=== PATIENT | female | born 1960 | race Caucasian/White ===

== ENCOUNTER 2019-06-24 11:55 | Inpatient (IN) | payer OTHER ==
[~2019-06-24] VITALS: Ht 172.7 cm; Wt 80.4 kg
[2019-06-24] MEDS ORDERED: SODIUM CHLORIDE FLUSH 10ML SYR IVF ONE (12:00)
[2019-06-24] MEDS ORDERED: LORazepam 2 MG/ML, 1ML ONE (12:22)
[2019-06-24] MEDS ORDERED: PLEASE ENTER HEIGHT AND WEIGHT MC SCH (12:30)
[2019-06-24] MEDS ORDERED: LORazepam 2 MG/ML, 1ML IVPush ONE (12:30)
--- NOTE | 2019-06-24 12:32 | NUR ---
LUNCH BREAK NOTE: PT TO MRI. BP 131/65. PT MEDICATED WITH ATIVAN PRIOR TO LEAVING.
[2019-06-24] MEDS ORDERED: GADOTERATE 7.5 MMOL/15 ML SYR ONE (12:57)
--- NOTE | 2019-06-24 13:23 | NUR ---
PT BACK FROM MRI, SEIZURE PADS PLACED ON BED. 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 PT BP - 135/72, HAS BEEN OFF DRIP FOR MRI. ERP AWARE, TO LEAVE DRIP OFF FOR NOW. LAB IN AT THIS TIME TO DRAW BLOOD. FAMILY AT BEDSIDE. PT PANTS REMOVED.
[2019-06-24 13:45] LABS: INTERNATIONAL NORMALIZED RATIO 1.08 (0.93-1.1); PROTHROMBIN TIME 11.5 Seconds (9.6-11.5)
--- NOTE | 2019-06-24 13:57 | NUR ---
TASK RN: PT ASSISTED TO BED MOREJON. PT AWAKE/ALERT, A&OX4. DENIES PAIN. DECREASED FINE MOTOR CONTROL AND SENSATION OF RUE. PT HAVING TROUBLE WITH WORD FINDING, SPEECH SLOW AND MILDLY SLURRED BY UNDERSTANDABLE. +STRENGTH OF BILAT LOWER EXTREMITIES. BP/SPO2/ECG MONITORING IN PLACE. NSR ON MONITOR. BP WITHIN SET PARAMETERS. Addendum: 06/24/19 at 1403 by MYAH HOB @ 45
--- NOTE | 2019-06-24 14:48 | NUR ---
PT RESTING IN BED, HOSPITALIST WAS IN TO SEE PT. PT REMAINS HAVING TROUBLE FINDING WORDS. FAMILY AT BEDSIDE. PT VSS, SEE CHARTED. PT GIVEN NON SKID SOCKS. PT NPO AT THIS TIME. WILL CONTINUE TO MONITOR.
[2019-06-24] MEDS ORDERED: DEXAMETHASONE 4 MG/ML, 1ML ONE (14:55)
[2019-06-24] MEDS: SODIUM CHLORIDE 0.9% 1,000 ML IV SCH (14:56)
[2019-06-24] MEDS: DEXAMETHASONE 4 MG/ML, 1ML IVPush SCH ×2 (14:57→20:50)
--- NOTE | 2019-06-24 15:44 | NUR ---
REPORT TO RONALD MEJIA FOR ROOM 404. PT RESTING CALMLY IN BED WITH FAMILY AT BEDSIDE.
[2019-06-24 16:12] VITALS: BP 133/73
[2019-06-24 19:47] VITALS: BP 109/69
[2019-06-25 00:15] VITALS: BP 102/63
[2019-06-25] MEDS: DEXAMETHASONE 4 MG/ML, 1ML IVPush SCH ×4 (02:44→20:36)
[2019-06-25] MEDS: SODIUM CHLORIDE 0.9% 1,000 ML IV SCH ×2 (02:46→16:57)
[2019-06-25 07:03] LABS: ANION GAP 7 mmol/L (5-15); CALCIUM 9.2 mg/dL (8.5-10.1); CHLORIDE 111 mmol/L (98-107)
[2019-06-25 07:57] VITALS: BP_SYST 114; BP_SYST 133; BP_DIAS 74; BP_DIAS 79
[2019-06-25 09:20] LABS: BASOPHILS # (AUTO) 0.03 x10^3/uL (0-0.1); BASOPHILS % (AUTO) 0 % (0-1); EOSINOPHILS % (AUTO) 0 % (1-7); LYMPHOCYTES # (AUTO) 0.76 x10^3/uL (1-3.4); LYMPHOCYTES % (AUTO) 7 % (22-44); MD NO; MEAN CORPUSCULAR HEMOGLOBIN 30.7 pg (27.0-34.8); MEAN CORPUSCULAR HGB CONC 33.4 g/dL (32.4-35.8); MEAN CORPUSCULAR VOLUME 91.9 fL (80-100); MEAN PLATELET VOLUME 9.4 fL (7.4-10.4); MONOCYTES # (AUTO) 0.13 x10^3/uL (0.2-0.8); MONOCYTES % (AUTO) 1 % (2-9); NEUTROPHILS # (AUTO) 9.72 x10^3/uL (1.8-6.8); NEUTROPHILS % (AUTO) 91 % (42-75); PLATELET COUNT 246 x10^3/uL (130-400); RED BLOOD COUNT 4.75 x10^6/uL (3.82-5.3); RED CELL DISTRIBUTION WIDTH 13.2 % (9.6-15.2)
[2019-06-25 13:24] VITALS: BP 120/75
--- NOTE | 2019-06-25 15:03 | NUR ---
REC: [email or web address] Addendum: 06/25/19 at 1503 by Alee LOU Amended: Links added.
[2019-06-25 19:48] VITALS: BP 131/78
[2019-06-25] MEDS ORDERED: OMNIPAQUE 350 MG/ML, 100ML BOTTLE ONE (22:42)
[2019-06-26 00:42] VITALS: BP 131/78
[2019-06-26] MEDS: DEXAMETHASONE 4 MG/ML, 1ML IVPush SCH ×4 (03:12→20:58)
[2019-06-26] MEDS: SODIUM CHLORIDE 0.9% 1,000 ML IV SCH ×2 (07:30→20:58)
[2019-06-26 09:01] VITALS: BP 129/74
[2019-06-26 14:13] VITALS: BP 129/78
[2019-06-26 19:45] VITALS: BP 115/71
[2019-06-27 00:55] VITALS: BP 134/80
[2019-06-27] MEDS: DEXAMETHASONE 4 MG/ML, 1ML IVPush SCH ×2 (03:00→09:30)
[2019-06-27] MEDS: ACETAMINOPHEN 325 MG TABLET PO PRN (06:30)
[2019-06-27 07:01] VITALS: BP 141/87
[2019-06-27] MEDS: SODIUM CHLORIDE 0.9% 1,000 ML IV SCH ×2 (09:17→19:07)
[2019-06-27] MEDS ORDERED: GADOTERATE 7.5 MMOL/15 ML SYR ONE (10:00)
[2019-06-27] MEDS ORDERED: FENTANYL PF 250 MCG/5ML ONE (12:12)
[2019-06-27] MEDS ORDERED: BACITRACIN 50,000 UNIT ONE (13:02)
[2019-06-27] MEDS ORDERED: THROMBIN 20,000 UNIT VIAL TP ONE (13:02)
[2019-06-27] MEDS ORDERED: BUPIVACAINE/PF-EPI 0.5% 1:200K ONE (13:02)
[2019-06-27] MEDS ORDERED: hydrALAzine 20 MG/ML, 1ML IV PRN (13:30)
[2019-06-27] MEDS ORDERED: METOPROLOL 1 MG/ML, 5ML IV PRN (13:30)
[2019-06-27] MEDS ORDERED: ACETAMINOPHEN 325 MG TABLET PO PRN (13:30)
[2019-06-27] MEDS ORDERED: OXYcodone 5 MG/5 ML ORAL.SOL UDC PO PRN (13:30)
[2019-06-27] MEDS ORDERED: HYDROmorphone 2 MG/ML, 1ML IVPush PRN (13:30)
[2019-06-27] MEDS ORDERED: PROMETHAZINE 25 MG/ML, 1ML IV PRN (13:30)
[2019-06-27] MEDS ORDERED: MIDAZOLAM 1 MG/ML, 2ML IV PRN (13:30)
[2019-06-27] MEDS ORDERED: ALBUTEROL/IPRATROPIUM 2.5MG/0.5MG, 3 ML NPPB PRN (13:30)
[2019-06-27] MEDS ORDERED: FENTANYL PF 100 MCG/2ML IV PRN (13:30)
[2019-06-27] MEDS ORDERED: MANNITOL PMX 20% [20 GM/100 ML] 500ML ONE (13:40)
[2019-06-27] MEDS ORDERED: LIDOCAINE 2% 100MG/5ML SYRINGE ONE (13:40)
[2019-06-27] MEDS ORDERED: ONDANSETRON 2MG/ML, 2ML ONE (15:28)
[2019-06-27] MEDS ORDERED: PROPOFOL 10 MG/ML, 20ML ONE (15:28)
[2019-06-27] MEDS ORDERED: DEXAMETHASONE 4 MG/ML, 1ML ONE (15:28)
[2019-06-27] MEDS ORDERED: FENTANYL PF 100 MCG/2ML ONE ×2 (15:28→17:34)
[2019-06-27] MEDS ORDERED: NEOSTIGMINE 1 MG/ML, 10ML ONE (15:28)
[2019-06-27] MEDS ORDERED: CEFAZOLIN 1,000 MG ONE (15:28)
[2019-06-27] MEDS ORDERED: GLYCOPYRROLATE 0.2MG/1ML, 5ML ONE (15:28)
[2019-06-27] MEDS ORDERED: ROCURONIUM 10MG/ML,5ML ONE (15:28)
[2019-06-27] MEDS ORDERED: ESMOLOL 100 MG/10 ML ONE (17:05)
[2019-06-27] MEDS ORDERED: CEFAZOLIN 2,000 MG in SODIUM CHLORIDE 0.9% 50 ML IV SCH (17:30)
[2019-06-27] MEDS ORDERED: OXYcodone 5 MG/5 ML ORAL.SOL UDC ONE (17:34)
[2019-06-27] MEDS: DEXAMETHASONE 10 MG in SODIUM CHLORIDE 0.9% 50 ML IV SCH (21:44)
[2019-06-27] MEDS ORDERED: LABETALOL 5MG/ML, 20ML IVPush PRN (22:30)
[2019-06-28] MEDS: CEFAZOLIN PMX 2GM/50ML 50 ML IVPB SCH ×3 (00:17→16:06)
[2019-06-28] MEDS ORDERED: OXYcodone/APAP 5/325MG TABLET PO PRN (00:30)
[2019-06-28] MEDS ORDERED: hydrALAzine 20 MG/ML, 1ML IV PRN (00:30)
[2019-06-28] MEDS: ACETAMINOPHEN 325 MG TABLET PO PRN (02:14)
[2019-06-28 04:00] VITALS: BP 136/77
[2019-06-28] MEDS: DEXAMETHASONE 10 MG in SODIUM CHLORIDE 0.9% 50 ML IV SCH ×4 (04:48→22:09)
[2019-06-28 05:47] LABS: BASOPHILS # (AUTO) 0.01 x10^3/uL (0-0.1); BASOPHILS % (AUTO) 0 % (0-1); EOSINOPHILS % (AUTO) 0 % (1-7); LYMPHOCYTES # (AUTO) 0.74 x10^3/uL (1-3.4); LYMPHOCYTES % (AUTO) 7 % (22-44); MD NO; MEAN CORPUSCULAR HEMOGLOBIN 30.8 pg (27.0-34.8); MEAN CORPUSCULAR HGB CONC 33.7 g/dL (32.4-35.8); MEAN CORPUSCULAR VOLUME 91.4 fL (80-100); MEAN PLATELET VOLUME 9.5 fL (7.4-10.4); MONOCYTES # (AUTO) 0.63 x10^3/uL (0.2-0.8); MONOCYTES % (AUTO) 6 % (2-9); NEUTROPHILS # (AUTO) 9.22 x10^3/uL (1.8-6.8); NEUTROPHILS % (AUTO) 87 % (42-75); PLATELET COUNT 222 x10^3/uL (130-400); RED BLOOD COUNT 4.04 x10^6/uL (3.82-5.3); RED CELL DISTRIBUTION WIDTH 13.1 % (9.6-15.2)
[2019-06-28 05:51] LABS: ANION GAP 7 mmol/L (5-15); CALCIUM 8.3 mg/dL (8.5-10.1); CHLORIDE 108 mmol/L (98-107)
[2019-06-28 05:52] LABS: CREATININE 0.74 mg/dL (0.55-1.02)
[2019-06-28] MEDS ORDERED: GADOTERATE 7.5 MMOL/15 ML SYR ONE (09:09)
[2019-06-28] MEDS ORDERED: PHARMACY INSTRUCTION MC PRN (10:30)
[2019-06-28] MEDS: ONDANSETRON 2MG/ML, 2ML IVPush PRN ×2 (10:43→18:13)
[2019-06-28] MEDS: SODIUM CHLORIDE 3% 500 ML IV PRN (10:58)
[2019-06-28] MEDS: LEVETIRACETAM 500 MG in SODIUM CHLORIDE 0.9% 100 ML IV SCH ×2 (12:24→23:13)
[2019-06-28] MEDS: FENTANYL PF 100 MCG/2ML IVPush PRN ×3 (13:37→20:22)
[2019-06-28] MEDS: SODIUM CHLORIDE 0.9% 1,000 ML IV SCH (20:23)
[2019-06-28] MEDS: DILTIAZEM 125 MG in SODIUM CHLORIDE 0.9% 100 ML IV PRN (20:23)
[2019-06-29] MEDS: CEFAZOLIN PMX 2GM/50ML 50 ML IVPB SCH ×3 (00:09→16:11)
[2019-06-29 04:00] VITALS: BP 125/74
[2019-06-29] MEDS: DILTIAZEM 125 MG in SODIUM CHLORIDE 0.9% 100 ML IV PRN ×2 (04:33→18:02)
[2019-06-29] MEDS: DEXAMETHASONE 10 MG in SODIUM CHLORIDE 0.9% 50 ML IV SCH ×4 (04:33→22:26)
[2019-06-29] MEDS: FENTANYL PF 100 MCG/2ML IVPush PRN ×2 (04:53→06:28)
[2019-06-29 05:46] LABS: BASOPHILS # (AUTO) 0.05 x10^3/uL (0-0.1); BASOPHILS % (AUTO) 1 % (0-1); EOSINOPHILS % (AUTO) 0 % (1-7); LYMPHOCYTES # (AUTO) 0.47 x10^3/uL (1-3.4); LYMPHOCYTES % (AUTO) 6 % (22-44); MD NO; MEAN CORPUSCULAR HEMOGLOBIN 30.5 pg (27.0-34.8); MEAN CORPUSCULAR HGB CONC 33.4 g/dL (32.4-35.8); MEAN CORPUSCULAR VOLUME 91.3 fL (80-100); MEAN PLATELET VOLUME 9.8 fL (7.4-10.4); MONOCYTES # (AUTO) 0.61 x10^3/uL (0.2-0.8); MONOCYTES % (AUTO) 7 % (2-9); NEUTROPHILS # (AUTO) 7.17 x10^3/uL (1.8-6.8); NEUTROPHILS % (AUTO) 86 % (42-75); PLATELET COUNT 253 x10^3/uL (130-400); RED CELL DISTRIBUTION WIDTH 13.3 % (9.6-15.2)
[2019-06-29 05:50] LABS: ALBUMIN 2.9 g/dL (3.4-5.0); ANION GAP 6 mmol/L (5-15); CALCIUM 8.4 mg/dL (8.5-10.1); CHLORIDE 109 mmol/L (98-107)
[2019-06-29 06:03] LABS: ALANINE AMINOTRANSFERASE 26 U/L (12-78); ALKALINE PHOSPHATASE 82 U/L (45-117); BILIRUBIN,TOTAL 0.8 mg/dL (0.2-1.0); CREATININE 0.55 mg/dL (0.55-1.02); FREE T4 (FREE THYROXINE) 1.54 ng/dL (0.76-1.46)
[2019-06-29] MEDS: ONDANSETRON 2MG/ML, 2ML IVPush PRN (07:43)
[2019-06-29] MEDS: SODIUM CHLORIDE 0.9% 1,000 ML IV SCH ×2 (08:59→22:10)
[2019-06-29] MEDS ORDERED: LACTULOSE 20 GM/30 ML UDC PO PRN (09:00)
[2019-06-29] MEDS: ACETAMINOPHEN 325 MG TABLET PO PRN ×2 (09:45→18:01)
[2019-06-29] MEDS: SODIUM CHLORIDE 3% 500 ML IV PRN (11:11)
[2019-06-29] MEDS: LEVETIRACETAM 500 MG in SODIUM CHLORIDE 0.9% 100 ML IV SCH ×2 (11:11→23:31)
[2019-06-29] MEDS: DOCUSATE 100 MG CAPSULE PO SCH (11:11)
[2019-06-29] MEDS: METOPROLOL TARTRATE 25 MG TAB PO SCH ×2 (12:24→20:23)
[2019-06-29] MEDS: SENNA/DOCUSATE TABLET PO SCH (20:23)
[2019-06-29] MEDS: SENNOSIDES 8.8 MG/5 ML ORAL SOL NG SCH (20:24)
[2019-06-29] MEDS ORDERED: BISACODYL 10 MG SUPP PR PRN (21:00)
[2019-06-30] MEDS: CEFAZOLIN PMX 2GM/50ML 50 ML IVPB SCH ×3 (00:17→15:54)
[2019-06-30] MEDS: DEXAMETHASONE 10 MG in SODIUM CHLORIDE 0.9% 50 ML IV SCH (04:10)
[2019-06-30] MEDS: METOPROLOL TARTRATE 25 MG TAB PO SCH (04:11)
[2019-06-30 04:56] LABS: BASOPHILS # (AUTO) 0.02 x10^3/uL (0-0.1); BASOPHILS % (AUTO) 0 % (0-1); EOSINOPHILS % (AUTO) 0 % (1-7); LYMPHOCYTES # (AUTO) 0.51 x10^3/uL (1-3.4); LYMPHOCYTES % (AUTO) 6 % (22-44); MD NO; MEAN CORPUSCULAR HEMOGLOBIN 31.4 pg (27.0-34.8); MEAN CORPUSCULAR HGB CONC 33.8 g/dL (32.4-35.8); MEAN CORPUSCULAR VOLUME 92.7 fL (80-100); MEAN PLATELET VOLUME 9.2 fL (7.4-10.4); MONOCYTES # (AUTO) 0.37 x10^3/uL (0.2-0.8); MONOCYTES % (AUTO) 4 % (2-9); NEUTROPHILS # (AUTO) 7.93 x10^3/uL (1.8-6.8); NEUTROPHILS % (AUTO) 90 % (42-75); PLATELET COUNT 248 x10^3/uL (130-400); RED BLOOD COUNT 4.43 x10^6/uL (3.82-5.3); RED CELL DISTRIBUTION WIDTH 12.9 % (9.6-15.2)
[2019-06-30 04:59] LABS: ANION GAP 7 mmol/L (5-15); CALCIUM 8.1 mg/dL (8.5-10.1); CHLORIDE 111 mmol/L (98-107); CREATININE 0.74 mg/dL (0.55-1.02)
[2019-06-30] MEDS: DOCUSATE 100 MG CAPSULE PO SCH (07:40)
[2019-06-30] MEDS: LEVETIRACETAM 500 MG in SODIUM CHLORIDE 0.9% 100 ML IV SCH ×2 (10:08→23:15)
[2019-06-30] MEDS: DEXAMETHASONE 8 MG in SODIUM CHLORIDE 0.9% 50 ML IV SCH ×3 (11:07→23:15)
[2019-06-30] MEDS ORDERED: METOPROLOL TARTRATE 50 MG TAB PO SCH (11:30)
[2019-06-30] MEDS: SODIUM CHLORIDE 3% 500 ML IV PRN (12:52)
[2019-06-30] MEDS ORDERED: SODIUM CHLORIDE 3% 500 ML IV PRN (13:30)
[2019-06-30] MEDS: METOPROLOL TARTRATE 50 MG TAB PO SCH ×2 (16:42→23:15)
[2019-06-30] MEDS ORDERED: DIGOXIN 0.25 MG/ML, 2ML IVPush ONE ×2 (17:00→23:00)
[2019-06-30] MEDS ORDERED: DILTIAZEM 125 MG in SODIUM CHLORIDE 0.9% 100 ML IV PRN (18:00)
[2019-06-30] MEDS: SENNOSIDES 8.8 MG/5 ML ORAL SOL NG SCH (21:00)
[2019-06-30] MEDS: SENNA/DOCUSATE TABLET PO SCH (21:14)
[2019-07-01 04:25] LABS: BASOPHILS # (AUTO) 0.01 x10^3/uL (0-0.1); BASOPHILS % (AUTO) 0 % (0-1); EOSINOPHILS % (AUTO) 0 % (1-7); LYMPHOCYTES # (AUTO) 0.43 x10^3/uL (1-3.4); LYMPHOCYTES % (AUTO) 6 % (22-44); MD NO; MEAN CORPUSCULAR HEMOGLOBIN 30.9 pg (27.0-34.8); MEAN CORPUSCULAR HGB CONC 33.8 g/dL (32.4-35.8); MEAN CORPUSCULAR VOLUME 91.5 fL (80-100); MEAN PLATELET VOLUME 9.2 fL (7.4-10.4); MONOCYTES # (AUTO) 0.33 x10^3/uL (0.2-0.8); MONOCYTES % (AUTO) 5 % (2-9); NEUTROPHILS # (AUTO) 6.43 x10^3/uL (1.8-6.8); NEUTROPHILS % (AUTO) 89 % (42-75); PLATELET COUNT 236 x10^3/uL (130-400)
[2019-07-01 04:33] LABS: ANION GAP 6 mmol/L (5-15); CALCIUM 8.3 mg/dL (8.5-10.1); CHLORIDE 110 mmol/L (98-107); CREATININE 0.59 mg/dL (0.55-1.02)
[2019-07-01] MEDS: DEXAMETHASONE 8 MG in SODIUM CHLORIDE 0.9% 50 ML IV SCH (05:13)
[2019-07-01] MEDS: METOPROLOL TARTRATE 50 MG TAB PO SCH ×4 (05:13→23:22)
[2019-07-01] MEDS: ACETAMINOPHEN 325 MG TABLET PO PRN (07:28)
[2019-07-01] MEDS: DOCUSATE 100 MG CAPSULE PO SCH (07:28)
[2019-07-01] MEDS: DEXAMETHASONE 4 MG TABLET PO SCH ×3 (08:55→20:29)
[2019-07-01] MEDS: SODIUM CHLORIDE 1 GM TABLET PO SCH ×2 (09:04→20:29)
[2019-07-01] MEDS: DIGOXIN 0.125 MG TABLET PO SCH (09:34)
[2019-07-01] MEDS: LEVETIRACETAM 500 MG in SODIUM CHLORIDE 0.9% 100 ML IV SCH ×2 (10:15→23:22)
[2019-07-02] MEDS: DEXAMETHASONE 4 MG TABLET PO SCH ×4 (02:09→20:46)
[2019-07-02 04:42] LABS: ANION GAP 7 mmol/L (5-15); CALCIUM 8.1 mg/dL (8.5-10.1); CHLORIDE 110 mmol/L (98-107); CREATININE 0.66 mg/dL (0.55-1.02)
[2019-07-02] MEDS: METOPROLOL TARTRATE 50 MG TAB PO SCH ×4 (05:44→23:32)
[2019-07-02 06:33] VITALS: BP 141/94
[2019-07-02] MEDS: SODIUM CHLORIDE 1 GM TABLET PO SCH ×2 (08:29→20:46)
[2019-07-02] MEDS: DIGOXIN 0.125 MG TABLET PO SCH (08:29)
[2019-07-02] MEDS: DOCUSATE 100 MG CAPSULE PO SCH (08:30)
[2019-07-02] MEDS: ACETAMINOPHEN 325 MG TABLET PO PRN (13:10)
[2019-07-02 13:13] VITALS: BP 133/79
[2019-07-02] MEDS: LEVETIRACETAM 500 MG in SODIUM CHLORIDE 0.9% 100 ML IV SCH ×2 (13:53→23:32)
[2019-07-02 16:38] VITALS: BP 128/90
[2019-07-02] MEDS: DILTIAZEM 30 MG TABLET PO SCH ×2 (16:39→20:46)
[2019-07-02 20:44] VITALS: BP 135/84
[2019-07-02 23:33] VITALS: BP 123/90
[2019-07-03] MEDS: DEXAMETHASONE 4 MG TABLET PO SCH ×4 (02:17→19:59)
[2019-07-03 02:30] VITALS: BP 123/90
[2019-07-03 05:15] LABS: ANION GAP 7 mmol/L (5-15); CALCIUM 8.1 mg/dL (8.5-10.1); CHLORIDE 108 mmol/L (98-107); CREATININE 0.58 mg/dL (0.55-1.02)
[2019-07-03 05:46] VITALS: BP 132/65
[2019-07-03] MEDS: METOPROLOL TARTRATE 50 MG TAB PO SCH ×4 (05:46→22:50)
[2019-07-03 07:35] VITALS: BP 136/86
[2019-07-03] MEDS: SODIUM CHLORIDE 1 GM TABLET PO SCH ×2 (08:47→19:59)
[2019-07-03] MEDS: DIGOXIN 0.125 MG TABLET PO SCH (08:47)
[2019-07-03] MEDS: DOCUSATE 100 MG CAPSULE PO SCH (08:47)
[2019-07-03] MEDS: DILTIAZEM 30 MG TABLET PO SCH ×3 (08:47→20:00)
[2019-07-03 12:36] VITALS: BP 138/90
[2019-07-03] MEDS: LEVETIRACETAM 500 MG in SODIUM CHLORIDE 0.9% 100 ML IV SCH ×2 (12:38→22:50)
[2019-07-03 15:30] VITALS: BP 133/84
[2019-07-03 18:06] VITALS: BP 131/88
[2019-07-04 02:00] VITALS: BP 129/79
[2019-07-04] MEDS: DEXAMETHASONE 4 MG TABLET PO SCH ×3 (02:06→20:06)
[2019-07-04] MEDS: METOPROLOL TARTRATE 50 MG TAB PO SCH ×4 (04:55→23:05)
[2019-07-04 07:46] VITALS: BP 130/81
[2019-07-04] MEDS: DILTIAZEM 30 MG TABLET PO SCH ×3 (09:54→20:06)
[2019-07-04] MEDS: DIGOXIN 0.125 MG TABLET PO SCH (09:54)
[2019-07-04] MEDS: SODIUM CHLORIDE 1 GM TABLET PO SCH ×2 (09:54→20:06)
[2019-07-04] MEDS: DOCUSATE 100 MG CAPSULE PO SCH (09:56)
[2019-07-04 11:25] VITALS: BP 119/80
[2019-07-04] MEDS: LEVETIRACETAM 500 MG in SODIUM CHLORIDE 0.9% 100 ML IV SCH ×2 (11:28→23:05)
[2019-07-04 13:20] VITALS: BP 136/87
[2019-07-04 20:21] VITALS: BP 147/99
[2019-07-05 02:00] VITALS: BP 132/68
[2019-07-05 04:57] VITALS: BP 146/95
[2019-07-05] MEDS: METOPROLOL TARTRATE 50 MG TAB PO SCH ×4 (04:58→23:38)
[2019-07-05 07:40] VITALS: BP 133/94
[2019-07-05] MEDS: SODIUM CHLORIDE 1 GM TABLET PO SCH ×2 (08:37→21:14)
[2019-07-05] MEDS: DILTIAZEM 30 MG TABLET PO SCH ×3 (08:38→21:14)
[2019-07-05] MEDS: DEXAMETHASONE 4 MG TABLET PO SCH ×2 (08:38→21:14)
[2019-07-05] MEDS: DOCUSATE 100 MG CAPSULE PO SCH (08:38)
[2019-07-05] MEDS: DIGOXIN 0.125 MG TABLET PO SCH (08:38)
[2019-07-05 12:54] VITALS: BP 120/79
[2019-07-05 18:44] VITALS: BP 123/81
[2019-07-05] MEDS: LEVETIRACETAM 500 MG TABLET PO SCH (21:14)
[2019-07-06] VITALS (7 sets, daily range): BP systolic 99–130; BP diastolic 64–89
[2019-07-06] MEDS: METOPROLOL TARTRATE 50 MG TAB PO SCH ×3 (05:30→21:36)
[2019-07-06] MEDS: DEXAMETHASONE 4 MG TABLET PO SCH ×2 (07:51→21:34)
[2019-07-06] MEDS: SODIUM CHLORIDE 1 GM TABLET PO SCH ×2 (07:51→21:33)
[2019-07-06] MEDS: DIGOXIN 0.125 MG TABLET PO SCH (07:51)
[2019-07-06] MEDS: DOCUSATE 100 MG CAPSULE PO SCH (07:51)
[2019-07-06] MEDS: LEVETIRACETAM 500 MG TABLET PO SCH ×2 (07:51→21:36)
[2019-07-06] MEDS: DILTIAZEM 30 MG TABLET PO SCH ×3 (07:51→21:31)
[2019-07-06 08:24] LABS: ANION GAP 5 mmol/L (5-15); CALCIUM 7.9 mg/dL (8.5-10.1); CHLORIDE 106 mmol/L (98-107); CREATININE 0.62 mg/dL (0.55-1.02)
[2019-07-06 09:50] LABS: MEAN CORPUSCULAR HEMOGLOBIN 30.6 pg (27.0-34.8); MEAN CORPUSCULAR HGB CONC 33.4 g/dL (32.4-35.8); MEAN CORPUSCULAR VOLUME 91.7 fL (80-100); MEAN PLATELET VOLUME 8.8 fL (7.4-10.4); PLATELET COUNT 238 x10^3/uL (130-400); RED BLOOD COUNT 5.15 x10^6/uL (3.82-5.3); RED CELL DISTRIBUTION WIDTH 13.1 % (9.6-15.2)
[2019-07-06 11:20] LABS: BASOPHILS # (AUTO) 0.01 x10^3/uL (0-0.1); BASOPHILS % (AUTO) 0 % (0-1); EOSINOPHILS % (AUTO) 0 % (1-7); LYMPHOCYTES # (AUTO) 0.55 x10^3/uL (1-3.4); LYMPHOCYTES % (AUTO) 5 % (22-44); MD SCAN; MONOCYTES # (AUTO) 0.26 x10^3/uL (0.2-0.8); MONOCYTES % (AUTO) 2 % (2-9); NEUTROPHILS # (AUTO) 11.13 x10^3/uL (1.8-6.8); NEUTROPHILS % (AUTO) 93 % (42-75)
[2019-07-06] MEDS ORDERED: DEXAMETHASONE 4 MG TABLET PO SCH (20:00)
[2019-07-06] MEDS ORDERED: DILTIAZEM 120 MG TABLET ONE (21:12)
[2019-07-07 01:29] VITALS: BP 124/81
[2019-07-07] MEDS: METOPROLOL TARTRATE 50 MG TAB PO SCH ×3 (04:20→18:37)
[2019-07-07 08:14] VITALS: BP 121/74
[2019-07-07] MEDS: SODIUM CHLORIDE 1 GM TABLET PO SCH ×2 (09:01→20:33)
[2019-07-07] MEDS: DIGOXIN 0.125 MG TABLET PO SCH (09:01)
[2019-07-07] MEDS: DEXAMETHASONE 4 MG TABLET PO SCH ×2 (09:02→20:28)
[2019-07-07] MEDS: LEVETIRACETAM 500 MG TABLET PO SCH ×2 (09:02→20:27)
[2019-07-07] MEDS: DOCUSATE 100 MG CAPSULE PO SCH (09:03)
[2019-07-07] MEDS: DILTIAZEM 30 MG TABLET PO SCH ×2 (09:03→17:03)
[2019-07-07 12:57] VITALS: BP 102/64
[2019-07-07 20:09] VITALS: BP 107/64
[2019-07-07] MEDS ORDERED: DEXAMETHASONE 1 MG TABLET ONE (20:19)
[2019-07-08 00:09] VITALS: BP 112/73
[2019-07-08] MEDS: DILTIAZEM 30 MG TABLET PO SCH ×2 (00:11→08:09)
[2019-07-08] MEDS: METOPROLOL TARTRATE 50 MG TAB PO SCH ×2 (00:12→05:11)
[2019-07-08 05:08] VITALS: BP 116/75
[2019-07-08 05:10] LABS: ANION GAP 9 mmol/L (5-15); CALCIUM 7.4 mg/dL (8.5-10.1); CHLORIDE 108 mmol/L (98-107); CREATININE 0.75 mg/dL (0.55-1.02)
[2019-07-08 05:12] LABS: BASOPHILS % (AUTO) 0 % (0-1); EOSINOPHILS # (AUTO) 0.16 x10^3/uL (0-0.4); EOSINOPHILS % (AUTO) 2 % (1-7); LYMPHOCYTES # (AUTO) 0.46 x10^3/uL (1-3.4); LYMPHOCYTES % (AUTO) 5 % (22-44); MD NO; MEAN CORPUSCULAR HEMOGLOBIN 30.7 pg (27.0-34.8); MEAN CORPUSCULAR HGB CONC 33.1 g/dL (32.4-35.8); MEAN CORPUSCULAR VOLUME 92.8 fL (80-100); MEAN PLATELET VOLUME 9.1 fL (7.4-10.4); MONOCYTES # (AUTO) 0.41 x10^3/uL (0.2-0.8); MONOCYTES % (AUTO) 4 % (2-9); NEUTROPHILS # (AUTO) 8.97 x10^3/uL (1.8-6.8); NEUTROPHILS % (AUTO) 90 % (42-75); PLATELET COUNT 177 x10^3/uL (130-400); RED BLOOD COUNT 4.17 x10^6/uL (3.82-5.3); RED CELL DISTRIBUTION WIDTH 13.1 % (9.6-15.2)
[2019-07-08 07:22] VITALS: BP 126/78
[2019-07-08] MEDS: SODIUM CHLORIDE 1 GM TABLET PO SCH (08:07)
[2019-07-08] MEDS: DEXAMETHASONE 4 MG TABLET PO SCH (08:08)
[2019-07-08] MEDS: DIGOXIN 0.125 MG TABLET PO SCH (08:08)
[2019-07-08] MEDS: LEVETIRACETAM 500 MG TABLET PO SCH (08:08)
[2019-07-08] MEDS: DOCUSATE 100 MG CAPSULE PO SCH (08:08)
[2019-07-08] MEDS ORDERED: DIGO125T85 PO (10:43)
[2019-07-08] MEDS ORDERED: DEXA4TAB66 PO (10:43)
[2019-07-08] MEDS ORDERED: METO50TA82 PO (10:43)
[2019-07-08] MEDS ORDERED: DILT30TA27 PO (10:43)
[2019-07-08] MEDS ORDERED: LEVE500T53 PO (10:43)
[2019-07-08] MEDS ORDERED: DOCU100C33 PO (10:43)
[2019-07-08 12:57] VITALS: BP 111/67
== END 2019-07-08 13:20 | DRG 25 ==
LOC: ED 14:13 → EDIP 14:14 → ED 14:44 → 4WST 16:25 → 4EST 06-27 15:22 → ICU 06-27 15:23 → 5SO 07-02 07:32 → 4NW 07-06 18:02
PROVIDERS: ADMIT Internal Medicine Infectious Disease; ATTEND Hospitalist
PROC: 03HY32Z Insertion of Monitoring Device into Upper Artery, Percutaneous Approach (ICD-10-PCS; 2019-06-27)
PROC: 00B70ZZ Excision of Cerebral Hemisphere, Open Approach (ICD-10-PCS; principal; 2019-06-27 12:00)
DX: C71.9 Malignant neoplasm of brain, unspecified (principal); G93.41 Metabolic encephalopathy; R47.01 Aphasia; D72.829 Elevated white blood cell count, unspecified; G43.909 Migraine, unspecified, not intractable, without status migrainosus; I48.91 Unspecified atrial fibrillation; T38.0X5A Adverse effect of glucocorticoids and synthetic analogues, initial encounter
CPT/HCPCS: 36415; 70450; 70552; 70553; 71045; 71260; 74177; 80048; 80053; 80162; 84295; 84439; 84443; 85025; 85610; 85730; 87081; 88307; 88331; 93005; 93306; 95819; 96374; 99291; C1713; G0378; J0690; J1100; J1953; J2405; J2704; J2710; J3010; Q9967; 92523-GN; A4648; A9575; C1781; J0360; J1160; J2060; J7030

== ENCOUNTER 2019-07-29 16:44 | Inpatient (IN) | payer OTHER ==
[~2019-07-29] VITALS: Ht 170.2 cm; Wt 73.7 kg
[~2019-07-29 16:44] MED LIST: DEXA4TAB66 PO; DIGO125T85 PO; DILT30TA27 PO; DOCU100C33 PO; LEVE500T53 PO; METO50TA82 PO
--- NOTE | 2019-07-29 16:55 | NUR ---
ASSUMED CARE OF PATIENT PATIENT BIB [facility], PT IS A TRANSFER FROM [facility]. PT HAS A HISTORY OF A HEMORRHAGIC MASS LEFT PARIETAL LOBE. PT HAS BEEN IN THERAPY SINCE DISCHARGE. PT REPORTS THIS MORNING SHE HIT HER HEAD THIS MORNING ON A BOOKSHELF. NO LOC. PT STARTED TO FEEL CONFUSED WITH A HEADACHE. PT WENT INTO [facility] ED. PT HAS SLOWED SPEECH AND REPORTS IT IS SLOWER THAN NORMAL. PT DOES HAVE A RIGHT SIDED FACIAL DROOP, BUT THAT IS BASELINE AT THIS TIME. 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 PT DOES HAVE A HARD TIME FINDING WORDS. PT REPORTS SHE IS IN SPEECH THERAPY. VS STABLE AT THIS TIME. 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 CALL LIGHT IN PLACE. PT INSTRUCTED TO CALL FOR HELP. WILL CONTINUE TO MONITOR.
--- NOTE | 2019-07-29 17:07 | NUR ---
PT DOES NOT KNOW WHAT HOME MEDICATIONS SHE TAKES AT THIS TIME.
--- NOTE | 2019-07-29 17:14 | NUR ---
PT SEEN BY LORENG.
--- NOTE | 2019-07-29 17:20 | NUR ---
NSG REPORTS PT HAS SOME EDEMA DUE TO BRAIN TUMOR AND PROGRESSION. PT TO BE AN ADMIT. VS STABLE. WILL CONTINUE TO MONITOR.
[2019-07-29] MEDS ORDERED: DEXAMETHASONE 4 MG/ML, 1ML ONE (17:22)
[2019-07-29] MEDS ORDERED: DEXAMETHASONE 4 MG/ML, 5ML IVPush ONE (17:30)
--- NOTE | 2019-07-29 17:59 | NUR ---
task rn: spoke with pharmacy. pharmacy to adjust decadron time.
[2019-07-29] MEDS ORDERED: DEXAMETHASONE 4 MG/ML, 1ML IVPush ONE (18:00)
[2019-07-29] MEDS ORDERED: SODIUM CHLORIDE FLUSH 10ML SYR IVF PRN (18:00)
--- NOTE | 2019-07-29 18:32 | NUR ---
PT RESTING IN ROOM. NO ACUTE DISTRSESS NOTED. CALL LIGHT IN PLACE. WILL CONTINUE TO MONITOR.
--- NOTE | 2019-07-29 18:41 | NUR ---
PT TALKING ON HER CELL PHONE WITH SON. NO ACUTE DISTRESS NOTED. CALL LIGHT IN PLACE. WILL CONTINUE TO MONITOR.
--- NOTE | 2019-07-29 19:12 | NUR ---
REPORT GIVEN TO JACKIE MCKOY
[2019-07-29] MEDS ORDERED: ACETAMINOPHEN 650 MG/20.3 ML UDC PO PRN (19:30)
[2019-07-29] MEDS ORDERED: ONDANSETRON 2MG/ML, 2ML IVPush PRN (19:30)
[2019-07-29] MEDS ORDERED: TRAZODONE 50MG TABLET PO PRN (19:30)
--- NOTE | 2019-07-29 19:51 | NUR ---
Pt up to commode with assist of 1 without complications.
[2019-07-29] MEDS ORDERED: hydrALAzine 20 MG/ML, 1ML IVPush PRN (20:00)
[2019-07-29] MEDS: DEXAMETHASONE 4 MG/ML, 1ML IVPush SCH (20:41)
[2019-07-29] MEDS: LEVETIRACETAM 500 MG TABLET PO SCH (20:42)
[2019-07-29 21:08] VITALS: BP 138/64
[2019-07-30] MEDS ORDERED: DEXAMETHASONE 4 MG/ML, 1ML IVPush SCH
[2019-07-30] MEDS: DEXAMETHASONE 4 MG/ML, 1ML IVPush SCH ×3 (00:01→12:48)
[2019-07-30 04:00] VITALS: BP 123/68
[2019-07-30] MEDS ORDERED: METOPROLOL TARTRATE 25 MG TAB PO SCH (06:00)
[2019-07-30] MEDS: LEVETIRACETAM 500 MG TABLET PO SCH (08:09)
[2019-07-30] MEDS ORDERED: DILTIAZEM 30 MG TABLET PO SCH (09:00)
[2019-07-30] MEDS ORDERED: DEXA4TAB66 PO (11:28)
== END 2019-07-30 14:15 | disposition home or self-care (01) | DRG 81 ==
LOC: ED 17:15 → EDIP 17:40 → CCU 20:07
PROVIDERS: ADMIT Family Medicine; ATTEND Internal Medicine
DX: G93.6 Cerebral edema (principal); R47.01 Aphasia; W18.39XA Other fall on same level, initial encounter; G43.909 Migraine, unspecified, not intractable, without status migrainosus; Y93.89 Activity, other specified; Y92.098 Other place in other non-institutional residence as the place of occurrence of the external cause; Y99.8 Other external cause status; Z83.3 Family history of diabetes mellitus; Z82.49 Family history of ischemic heart disease and other diseases of the circulatory system; Z85.841 Personal history of malignant neoplasm of brain
CPT/HCPCS: 36415; 80162; 80177; 87081; 96374; 99285; G0378; J1100